=== PATIENT | female | born 1985 | race Caucasian/White ===

== ENCOUNTER → 2017-02-25 | Outpatient (CLI) | payer BC, MEDICAID | LOC: OD 16:49 | PROVIDERS: ATTEND Obstetrics & Gynecology | DX: Z34.83 Encounter for supervision of other normal pregnancy, third trimester (principal); Z11.59 Encounter for screening for other viral diseases; Z11.3 Encounter for screening for infections with a predominantly sexual mode of transmission; Z11.4 Encounter for screening for human immunodeficiency virus [HIV] | CPT/HCPCS: 36415; 86592; 86701 ==

== ENCOUNTER 2017-05-07 07:45 | Inpatient (IN) | payer BC, MEDICAID ==
[2017-05-06 13:08] LABS: APPEARANCE,URINE CLEAR; BILIRUBIN,URINE NEGATIVE (NEGATIVE); COLOR,URINE STRAW; GLUCOSE, URINE NEGATIVE (NEGATIVE); KETONES,URINE NEGATIVE (NEGATIVE); LEUKOCYTE ESTERASE,URINE NEGATIVE (NEGATIVE); NITRITE,URINE NEGATIVE (NEGATIVE); PROTEIN,URINE NEGATIVE (NEGATIVE); URINE SPECIFIC GRAVITY 1.003; UROBILINOGEN,URINE NEGATIVE mg/dL (<2.0)
[2017-05-06 13:13] LABS: ABSOLUTE LYMPHOCYTES (AUTO) 2.1 10^3/uL (0.5-4.7); ABSOLUTE MONOCYTES (AUTO) 0.7 10^3/uL (0.1-1.4); BASOPHILS % (AUTO) 0.2 % (0-2); EOSINOPHILS % (AUTO) 0.2 % (0-6); HEMATOCRIT 30.6 % (36.0-47.0); HEMOGLOBIN 10.4 g/dL (12.0-15.5); LYMPHOCYTES % (AUTO) 23.5 % (13-45); MEAN CORPUSCULAR HEMOGLOBIN 29.7 pg (27.0-33.4); MEAN CORPUSCULAR HGB CONC 34.1 g/dL (32.0-36.0); MEAN CORPUSCULAR VOLUME 87 fl (80-97); MONOCYTES % (AUTO) 7.6 % (3-13); PLATELET COUNT 222 10^3/uL (150-450); RED BLOOD COUNT 3.51 10^6/uL (3.72-5.28); RED CELL DISTRIBUTION WIDTH 13.1 % (11.5-14.0); SEGMENTED NEUTROPHILS % (AUTO) 68.5 % (42-78); TOTAL CELLS COUNTED % (AUTO) 100 %; WHITE BLOOD COUNT 8.7 10^3/uL (4.0-10.5)
[2017-05-06 13:28] LABS: URINE AMPHETAMINES SCREEN NEGATIVE; URINE BARBITURATES SCREEN NEGATIVE; URINE BENZODIAZEPINES SCREEN NEGATIVE; URINE COCAINE SCREEN NEGATIVE; URINE MARIJUANA (THC) SCREEN NEGATIVE; URINE METHADONE SCREEN NEGATIVE; URINE PHENCYCLIDINE SCREEN NEGATIVE
[2017-05-08] MEDS ORDERED: CEFAZOLIN 1 GM/D5W RTU 1 GM/50 ML RTUPB IV PRN (05:00)
[2017-05-08] MEDS ORDERED: LIDOCAINE 0.5% INJ-PF (5 MG/ML) 50 ML SDV SUBCUT PRN (05:00)
[2017-05-08] MEDS ORDERED: LACTATED RINGERS 1000 ML IV PRN (05:00)
[2017-05-08] MEDS ORDERED: RINGERS SOLUTION,LACTATED 2,000 ML IV PRN (05:00)
[2017-05-08] MEDS ORDERED: OXYTOCIN/NORMAL SALINE 40 UNIT/2,000 ML RTUINJ ONE (07:45)
[2017-05-08] MEDS ORDERED: MIDAZOLAM 2 MG/2 ML INJ ONE ×2 (07:45→08:29)
[2017-05-08] MEDS ORDERED: EPHEDRINE SULFATE INJ 50 MG/1 ML AMPULE ONE (07:45)
[2017-05-08] MEDS ORDERED: TETRACAINE HCL/PF 20MG/2ML AMPULE (SPINAL) ONE (07:56)
[2017-05-08] MEDS ORDERED: LIDOCAINE 2% INJ-PF (20 MG/ML) 10 ML AMPUL ONE ×2 (08:22→08:23)
[2017-05-08] MEDS ORDERED: FENTANYL CITRATE INJ/PF 100 MCG/2 ML AMPUL ONE ×2 (08:28→09:14)
[2017-05-08] MEDS ORDERED: KETAMINE HCL INJ 500 MG/10 ML VIAL ONE (08:28)
[2017-05-08] MEDS ORDERED: BUPIVACAINE HCL 0.5 % INJ/PF 30 ML SDV ONE (08:43)
[2017-05-08] MEDS ORDERED: FENTANYL CITRATE INJ/PF 100 MCG/2 ML AMPUL IV PRN ×4 (08:47→12:51)
[2017-05-08] MEDS ORDERED: MEPERIDINE HCL/PF INJ 25 MG/1 ML DISP.SYRIN IV PRN (08:47)
[2017-05-08] MEDS ORDERED: DIPHENHYDRAMINE HCL 50 MG/ML VIAL IV PRN (08:47)
[2017-05-08] MEDS ORDERED: OXYCODONE-ACETAMINOPHEN 5-325 MG TABLET PO PRN ×3 (08:47→13:00)
[2017-05-08] MEDS ORDERED: PROMETHAZINE HCL INJ 25 MG/1 ML VIAL IV PRN ×2 (08:47)
[2017-05-08] MEDS: FENTANYL CITRATE INJ/PF 100 MCG/2 ML AMPUL ONE ×3 (09:57→10:34)
[2017-05-08] MEDS ORDERED: OXYTOCIN/NORMAL SALINE 20 UNIT/1,000 ML RTUINJ ONE (10:37)
[2017-05-08] MEDS: HYDROMORPHONE HCL INJ/PF 2 MG/ML AMPULE ONE ×2 (10:37→10:45)
--- NOTE | 2017-05-08 10:44 | OPERATIVE REPORT E ---
Operative Report NAME: CORRINE YANG : 1985 AGE: 32Y DATE OF SURGERY: 05/08/2017 ROOM: 222 PREOPERATIVE DIAGNOSIS: IUP at 39 weeks 0 days, previous , undesired fertility. POSTOPERATIVE DIAGNOSIS: IUP at 39 weeks 0 days, previous , undesired fertility OPERATION: Low transverse hysterotomy section with [place] tubal ligation. SURGEON: KVNG LOZA M.D. MANAGER PORT: Rosalia Givens, [employer]ing Machine T[employer]. ANESTHESIA: Dr. Wen with an epidural. FINDINGS: A female in cephalic presentation with Apgars of 9 and 9, and weight 7 pounds 1 ounce. COMPLICATIONS: None. ESTIMATED BLOOD LOSS: 600 mL. SPECIMENS REMOVED: Bilateral fallopian tubes. PROCEDURE: The patient was taken to the operating room, prepared and draped in normal sterile fashion in the supine position with a leftward tilt. A transverse skin incision was made with the scalpel and carried through to the underlying layer of fascia with the scalpel. The fascia was excised in the midline, extended laterally with the Yang. The fascia was then dissected bluntly from the rectus muscle. The rectus muscle was divided easily and the peritoneal cavity was entered easily with good visualization of the bladder. The bladder blade was inserted and the hysterotomy was nicked in the center with the scalpel and extended laterally with surgeon finger pressure. The infant was then delivered atraumatically. The nose and mouth were suctioned with the suction bulb and the cord was clamped and cut, and the infant was handed off to a waiting pattern hand. Cord blood was collected and the placenta was removed manually. The uterus was exteriorized and cleared of clots and debris. The hysterotomy was closed with 0 Monocryl in a running locked fashion. A second layer of the same suture was used to imbricate to ensure hemostasis. Attention was then turned to the fallopian tubes for the tubal ligation. The fallopian tubes were grasped with Isabel's and the mesosalpinx was divided and a large section of fallopian tube of approximately 3 cm each was tied off with 2 pieces of 2-0 chromic. The intermediate segments were removed with a Metzenbaum. The pedicles were then coagulated with the Bovie to ensure hemostasis. The uterus was returned to the abdomen and the peritoneal cavity was cleared of clots and debris. The pedicles were reinspected and found to be intact. The rectus muscle and peritoneum were reapproximated with a mattress suture of 2-0 chromic, the fascia was closed with 0 Vicryl, the subcutaneous layer was closed with plain catgut, and the skin was closed with 4-0 Vicryl. The patient tolerated the procedure well. Sponge, lap and needle counts were correct x2. The patient was taken to recovery in stable condition. DICTATING PHYSICIAN: KVNG LOZA M.D. [id number] PHY#: [id number] ID: [id number] JOB#: [id number] ACCT: [id number] cc:KVNG LOZA M.D. >
[2017-05-08] MEDS ORDERED: OXYTOCIN/NORMAL SALINE 20 UNIT/1,000 ML RTUINJ INJ PRN (12:46)
[2017-05-08] MEDS ORDERED: OXYCODONE-ACETAMINOPHEN 5-325 MG TABLET ONE (12:52)
[2017-05-08] MEDS ORDERED: MEASLES,MUMPS&RUBELLA VACC/PF 0.5 ML VIAL SUBCUT PRN (13:00)
[2017-05-08] MEDS ORDERED: DIPH/PERTUSS(ACELL)/TETANUS VAC/PF 0.5 ML SYR (>=10YO) IM PRN (13:00)
[2017-05-08] MEDS ORDERED: PROMETHAZINE HCL INJ 25 MG/1 ML VIAL IM PRN (13:00)
[2017-05-08] MEDS ORDERED: ACETAMINOPHEN 325 MG TABLET PO PRN (13:00)
[2017-05-08] MEDS ORDERED: RINGERS SOLUTION,LACTATED 1,000 ML IV SCH (13:00)
[2017-05-08] MEDS ORDERED: ONDANSETRON HCL INJ/PF 4 MG/2 ML SDV ONE (13:02)
[2017-05-08] MEDS: ACETAMINOPHEN 100 ML IV SCH ×2 (13:52→22:14)
[2017-05-08] MEDS: KETOROLAC TROMETHAMINE INJ/PF 30 MG/1 ML SDV IV SCH ×2 (13:53→22:15)
[2017-05-08] MEDS: DOCUSATE SODIUM 100 MG CAPSULE PO SCH (17:26)
[2017-05-08] MEDS: OXYCODONE-ACETAMINOPHEN 5-325 MG TABLET PO PRN (18:01)
[2017-05-09] MEDS: OXYCODONE-ACETAMINOPHEN 5-325 MG TABLET PO PRN ×3 (01:36→22:32)
[2017-05-09] MEDS: KETOROLAC TROMETHAMINE INJ/PF 30 MG/1 ML SDV IV SCH (05:19)
[2017-05-09 07:01] LABS: HEMATOCRIT 26.7 % (36.0-47.0); MEAN CORPUSCULAR HEMOGLOBIN 29.1 pg (27.0-33.4); MEAN CORPUSCULAR HGB CONC 33.7 g/dL (32.0-36.0); MEAN CORPUSCULAR VOLUME 86 fl (80-97); PLATELET COUNT 184 10^3/uL (150-450); RED BLOOD COUNT 3.09 10^6/uL (3.72-5.28); RED CELL DISTRIBUTION WIDTH 13.1 % (11.5-14.0); WHITE BLOOD COUNT 8.9 10^3/uL (4.0-10.5)
[2017-05-09] MEDS: SIMETHICONE 80 MG TAB.CHEW PO PRN ×4 (07:20→22:38)
[2017-05-09] MEDS: PRENATAL VITAMIN W DHA CAPSULE PO SCH (09:01)
[2017-05-09] MEDS: DOCUSATE SODIUM 100 MG CAPSULE PO SCH ×2 (09:01→18:11)
--- NOTE | 2017-05-09 11:01 | PDOC PROGRESS REPORT ---
Subjective-OB Progress Note for:: 05/09/17 Subjective: day X1 s/p r c/s Doing well, passing gas, ambulating, tolerating diet, lochia is stable, voiding without difficulty. Bonding with baby well. Physical Exam (OB) Vital Signs: Temp Pulse Resp BP Pulse Ox 98.4 F 90 18 129/72 H 100 05/09/17 08:08 05/09/17 08:08 05/09/17 08:08 05/09/17 08:08 05/09/17 08:08 Intake & Output 05/08/17 05/09/17 05/10/17 06:59 06:59 06:59 Intake Total 4410 Output Total 3900 Balance 510 Weight 67.132 kg - PIH/Pre-Eclampsia Clonus: Negative Headache: Absent Epigastric Pain: No Visual Changes: No - Dressing Removed: No Incision: Dressing, Well Approximated - Lochia Lochia Amount: Small 10-25 ml Lochia Color: Rubra/Red - Abdomen Description: Soft, Round Hernia Present: No Fundal Description: Firm Fundal Height: u/u - u/2 Objective-Diagnostic Laboratory: 05/09/17 06:37 05/09/17 06:37 WBC 8.9 RBC 3.09 L Hgb 9.0 L Hct 26.7 L MCV 86 MCH 29.1 MCHC 33.7 RDW 13.1 Plt Count 184 Assessment and Plan(PN) - Assessment and Plan (1) S/P repeat low transverse Is this a current diagnosis for this admission?: Yes Plan: routine postop care - Time Spent with Patient Time with patient: Less than 15 minutes Critical Time spent with patient: Less than 15 minutes Medications reviewed and adjusted accordingly: Yes - Disposition Anticipated Discharge: Home Within: within 24 hours
[2017-05-09] MEDS: IBUPROFEN 800 MG TABLET PO SCH ×2 (13:31→18:11)
[2017-05-10] MEDS: IBUPROFEN 800 MG TABLET PO SCH ×2 (01:44→05:17)
[2017-05-10] MEDS: SIMETHICONE 80 MG TAB.CHEW PO PRN (08:24)
--- NOTE | 2017-05-10 08:55 | PDOC DISCHARGE SUMMARY ---
Final Diagnosis Discharge Date: 05/10/17 - Final Diagnosis (1) S/P repeat low transverse Is this a current diagnosis for this admission?: Yes (2) Acute blood loss anemia Is this a current diagnosis for this admission?: Yes Discharge Data - Discharge Medication Prescriptions: Oxycodone HCl/Acetaminophen [Percocet 5-325 mg Tablet] 2 tab PO Q4HP PRN #30 tablet PRN Reason: Docusate Sodium [Colace 100 mg Capsule] 100 mg PO BID #60 capsule Ibuprofen [Motrin 800 mg Tablet] 800 mg PO Q6 #60 tablet Home Medications: L.acidoph,Paracasei, B.lactis [Probiotic] 1 each PO DAILY 05/06/17 Omeprazole Magnesium [Prilosec Otc] 20 mg PO DAILY 05/06/17 Prenat 115/Iron Fum/Folic/Dss [ 19 Tablet] 1 each PO DAILY 05/06/17 Ranitidine HCl [Zantac 75 mg Tablet] 75 mg PO BID 05/06/17 Docusate Sodium [Colace 100 mg Capsule] 100 mg PO BID #60 capsule 05/10/17 Ibuprofen [Motrin 800 mg Tablet] 800 mg PO Q6 #60 tablet 05/10/17 Oxycodone HCl/Acetaminophen [Percocet 5-325 mg Tablet] 2 tab PO Q4HP PRN #30 tablet 05/10/17 Gestational Age: 39 Reason(s) for Admission: Ceasarean Section-Repeat Procedures: NST Intrapartum Procedure(s): : Low Cervical, Transverse, Tubal Ligation - Data Baby 1 Female at 1 minute: 9 at 5 minutes: 9 Weight: 3.203 kg Home with Mother: Yes Complications: No - Diagnosis Test Laboratory: Temp Pulse Resp BP Pulse Ox 98.6 F 75 16 124/80 99 05/10/17 07:42 05/10/17 07:42 05/10/17 07:42 05/10/17 07:42 05/10/17 07:42 05/06/17 05/06/17 05/09/17 09:30 12:05 06:37 RBC 3.51 L 3.09 L Hgb 10.4 L 9.0 L Hct 30.6 L 26.7 L Urine Opiates Screen NEGATIVE - Discharge information/Instructions Discharge Activity: Activity As Tolerated, No Driving, No Lifting Over 10 Pounds , Pelvic Rest, No tub bath Discharge Diet: Regular Disposition: HOME, SELF-CARE Follow up with: [facility] in: 1, Weeks - on floridix for iron
[2017-05-10 09:09] VITALS: BP 120/60
[2017-05-10] MEDS: OXYCODONE-ACETAMINOPHEN 5-325 MG TABLET PO PRN (09:55)
[2017-05-10] MEDS: DOCUSATE SODIUM 100 MG CAPSULE PO SCH (09:55)
[2017-05-10] MEDS: PRENATAL VITAMIN W DHA CAPSULE PO SCH (09:55)
== END 2017-05-10 11:17 | disposition home or self-care (01) | DRG 765 ==
LOC: 2S 05-08 05:02
PROVIDERS: ADMIT Student in an Organized Health Care Education/Training Program; ATTEND Student in an Organized Health Care Education/Training Program
PROC: 0UB70ZZ Excision of Bilateral Fallopian Tubes, Open Approach (ICD-10-PCS; 2017-05-08)
PROC: 4A1HXCZ Monitoring of Products of Conception, Cardiac Rate, External Approach (ICD-10-PCS; 2017-05-08)
PROC: 10D00Z1 Extraction of Products of Conception, Low, Open Approach (ICD-10-PCS; principal; 2017-05-08 07:45)
DX: O34.211 Maternal care for low transverse scar from previous cesarean delivery (principal); D62 Acute posthemorrhagic anemia; O99.02 Anemia complicating childbirth; Z79.899 Other long term (current) drug therapy; Z3A.39 39 weeks gestation of pregnancy; Z82.49 Family history of ischemic heart disease and other diseases of the circulatory system; Z88.3 Allergy status to other anti-infective agents; Z88.8 Allergy status to other drugs, medicaments and biological substances; Z37.0 Single live birth
CPT/HCPCS: 1961; 36415; 59025; 80307; 81001; 85025; 85027; 86850; 86900; 86901; 88302; 94799; J0131; J1170; J1885; J2250; J2405; J2590; J3010; J3490